=== PATIENT | female | born 1965 | race Caucasian/White ===

== ENCOUNTER 2017-02-05 14:48 | Emergency (ER) | payer SELFPAY ==
[~2017-02-05] VITALS: Ht 162.6 cm; Wt 50.0 kg
[~2017-02-05 14:48] MED LIST: CYCL1PAK PO; KETO10 PO; LORA-392 PO; OMEP20TA39 PO; OXYC1SOL5 PO; PROM25TA5 PO
[2017-02-05 14:49] VITALS: BP 189/127; PULSE 137; RESP 20; TEMP 98.1; O2SAT 99
[2017-02-05] MEDS ORDERED: ZOFR4TAB3 SL (16:56)
[2017-02-05] MEDS ORDERED: LORazepam 2 MG/ML VIAL IM ONE (17:30)
[2017-02-05] MEDS ORDERED: KETOROLAC TROMETHAMINE 60 MG/2 ML (IM) VIAL IM ONE (17:30)
--- NOTE | 2017-02-05 18:11 | PD ---
HPI . Headache Chief Complaint: Headache Time Seen by Provider: 17:10 Travel History International Travel<30 days: No Contact w/Intl Traveler<30days: No Traveled to known affect area: No History of Present Illness HPI Patient presents with chief complaint of headache. Onset was last night. The pain is getting progressively worse. It is constant. She describes it as stabbing and sharp and rates it 10/10. The pain is associated with nausea and vomiting. She believes that the pain originates in her neck and radiates to her head. She states that she has known cervical disc disease. Unfortunately, this patient lists multiple drug allergies. Most of the medications just make her nauseous but she is not willing to try them. PFSH Past Medical History Arthritis: No Asthma: No Autoimmune Disease: No Blood Disorders: No Anxiety: Yes Depression: Yes Heart Rhythm Problems: No Cancer: No Cardiovascular Problems: No High Cholesterol: No Chemotherapy: No Chest Pain: No Congestive Heart Failure: No COPD: No Cerebrovascular Accident: No Diabetes: No Diminished Hearing: No Diverticulitis: Yes Endocrine: No Gastrointestinal Disorders: Yes GERD: No Glaucoma: No Genitourinary: No Headaches: Yes Hepatitis: No Hiatal Hernia: No Hypertension: No Immune Disorder: No Inguinal Hernia: Yes Kidney Stones: No Musculoskeletal: Yes Neurologic: Yes Psychiatric: Yes Reproductive: No Respiratory: No Migraines: Yes Myocardial Infarction: No Radiation Therapy: No Renal Failure: No Seizures: Yes Sickle Cell Disease: No Sleep Apnea: No Thyroid Disease: No Ulcer: No Influenza Vaccination: No ?: Not Past Surgical History Abdominal Surgery: Yes (left inguinal hernia repair) AICD: No Appendectomy: No Cardiac Surgery: No Cholecystectomy: No Ear Surgery: No Endocrine Surgery: No Eye Surgery: No Genitourinary Surgery: No Gynecologic Surgery: Yes (1996 R OOPHERECTOMY,1999 PARTIAL REMOVAL OF OVARY, 2003 TOTAL HYSTERECTOMY) Hysterectomy: Yes Oral Surgery: No Pacemaker: No Thoracic Surgery: No Other Surgery: Yes Social History Alcohol Use: No Tobacco Use: Yes (CIGARETTES 1PPD) Substance Use: No Allergies-Medications (Allergen,Severity, Reaction): Coded Allergies: Sulfa (Sulfonamide Antibiotics) (Unverified Allergy, Severe, 02/05/17) butorphanol (Unverified Allergy, Severe, 02/05/17) prochlorperazine (Unverified Allergy, Severe, 02/05/17) trimethobenzamide (Unverified Allergy, Severe, 02/05/17) carbamazepine (Unverified Allergy, Intermediate, Hallucinations, 02/05/17) methadone (Unverified Adverse Reaction, Intermediate, Marked nausea requiring Zofran concomitantly, 02/05/17) ciprofloxacin (Unverified Adverse Reaction, Mild, Nausea/Vomiting, 02/05/17 ) Uncoded Allergies: Epidural Dye (Adverse Reaction, Severe, Triggered her migraine but with sparkley lights seen which , 02/12/11) she has never had before Reported Meds & Prescriptions Reported Meds & Active Scripts Active Prednisone (21) 10 mg tab Dose Pack (Prednisone) 10 Mg Pack 10 Mg PO DIRECTED Flexeril (Cyclobenzaprine HCl) 10 Mg Tab 10 Mg PO TID Reported Zofran Odt (Ondansetron Odt) 4 Mg Tab 4 Mg SL Q6HR PRN Review of Systems Except as stated in HPI: all other systems reviewed are Neg General / Constitutional: No: Fever, Chills Eyes: No: Diploplia HENT: Positive: Headaches, Neck Pain Gastrointestinal: Positive: Nausea, Vomiting Physical Exam Narrative GENERAL: Awake and alert. She is sitting crosslegged on the bed rocking back and forth. SKIN: Warm and dry. HEAD: Normocephalic/atraumatic. Occipital scalp tenderness. EYES: Pupils are equal. Extraocular movements are intact. NECK: Normal range of motion. Diffusely tender but supple. CARDIOVASCULAR: Regular rate and rhythm. RESPIRATORY: Nonlabored respirations. MUSCULOSKELETAL: Atraumatic. NEUROLOGICAL: Nonfocal. A and O 3. Cranial nerves are intact. She is moving all 4 extremities equally. PSYCHIATRIC: Appropriate mood and affect. Data Data Last Documented VS Vital Signs Date Time Temp Pulse Resp B/P (MAP) Pulse Ox O2 Delivery O2 Flow Rate FiO2 02/05/17 18:53 105 18 135/85 (102) 97 Room Air 02/05/17 14:49 98.1 Orders Orders Ketorolac Inj (Toradol Inj) (02/05/17 17:30) Lorazepam Inj (Ativan Inj) (02/05/17 17:30) Ondansetron Odt (Zofran Odt) (02/05/17 18:15) Dexamethasone Inj (Decadron Inj) (02/05/17 18:15) Basic Metabolic Panel (Bmp) (02/05/17 18:58) Complete Blood Count With Diff (02/05/17 18:58) Drug Screen, Random Urine (02/05/17 18:58) ^ Saline Lock (02/05/17 18:58) Ct Brain W/O Iv Contrast(Rout) (02/05/17 18:58) Ct Cerv Spine W/O Contrast (02/05/17 18:58) Labs Laboratory Tests Test 02/05/17 19:27 White Blood Count 10.1 TH/MM3 Red Blood Count 5.01 MIL/MM3 Hemoglobin 14.8 GM/DL Hematocrit 44.1 % Mean Corpuscular Volume 88.1 FL Mean Corpuscular Hemoglobin 29.6 PG Mean Corpuscular Hemoglobin Concent 33.6 % Red Cell Distribution Width 13.5 % Platelet Count 241 TH/MM3 Mean Platelet Volume 7.3 FL Neutrophils (%) (Auto) 68.4 % Lymphocytes (%) (Auto) 25.2 % Monocytes (%) (Auto) 5.5 % Eosinophils (%) (Auto) 0.2 % Basophils (%) (Auto) 0.7 % Neutrophils # (Auto) 6.9 TH/MM3 Lymphocytes # (Auto) 2.5 TH/MM3 Monocytes # (Auto) 0.6 TH/MM3 Eosinophils # (Auto) 0.0 TH/MM3 Basophils # (Auto) 0.1 TH/MM3 CBC Comment DIFF FINAL Differential Comment Blood Urea Nitrogen 10 MG/DL Creatinine 0.64 MG/DL Random Glucose 95 MG/DL Calcium Level 8.9 MG/DL Sodium Level 139 MEQ/L Potassium Level 3.8 MEQ/L Chloride Level 106 MEQ/L Carbon Dioxide Level 25.9 MEQ/L Anion Gap 7 MEQ/L Estimat Glomerular Filtration Rate 99 ML/MIN [facility] Medical Decision Making Medical Screen Exam Complete: Yes Emergency Medical Condition: Yes Differential Diagnosis Differential diagnosis of headache includes but is not limited to migraine, muscle contraction headache, brain tumor, brain bleed Narrative Course Patient presents complaining with head and neck pain. Because of her drug allergies, I have ordered IM Toradol and IM Ativan. She refused the Toradol stating that it upsets her stomach. I have discussed her multiple allergies and the difficulty treating her secondary to these allergies. I have told her that I can offer her a Decadron shot. She has accepted that. She would also like something for nausea and I have ordered Zofran. The nurse reports the patient is finally resting. I will discharge her with a prescription for steroids and muscle relaxant. The pain is likely coming from her neck. When I went in to discharge the patient, she told me that she felt no better. The nurse had just awakened her from sleep to check on her. Last Impressions Head CT 02/05/171857 Signed Impressions: Service Date/Time: Sunday, February 05, 2017 19:12 - CONCLUSION: Normal examination for a patient of this age. No significant change has occurred. Lucien Araya MD Cervical Spine CT 02/05/171857 Signed Impressions: Service Date/Time: Sunday, February 05, 2017 19:12 - CONCLUSION: Normal examination for a patient of this age. Lucien Araya MD CBC & BMP Diagram 02/05/17 19:27 Calcium Level 8.9 This patient's laboratory and radiographic evaluation is normal. The history, exam, diagnostic testing, and current condition do not suggest any significant pathology to warrant further testing, continued ED treatment, admission, or surgical evaluation at this point. No EMC was found. The patient 's condition is stable and appropriate for discharge. Diagnosis Primary Impression: Severe headache Additional Impression: Neck pain Patient Instructions: Acute Headache (DC), Acute Neck Pain (ED), General Instructions Med/Other Pt SpecificInfo: Prescription(s) given Scripts Prednisone (21) 10 mg tab Dose Pack (Prednisone (21) 10 mg tab Dose Pack) 10 Mg Pack 10 MG PO DIRECTED for Inflammation, #1 DSPK 0 Refills Prov: Alondra Ramos MD 02/05/17 Cyclobenzaprine (Flexeril) 10 Mg Tab 10 MG PO TID for Muscle Spasm, #15 TAB 0 Refills Prov: Alondra Ramos MD 02/05/17 Disposition: 01 DISCHARGE HOME Condition: Stable Alondra Ramos MD Feb 05, 2017 18:11
[2017-02-05] MEDS ORDERED: ONDANSETRON ODT 4 MG TAB PO ONE (18:15)
[2017-02-05] MEDS ORDERED: DEXAMETHASONE SOD PHOS 20 MG/5 ML VIAL IM ONE (18:15)
[2017-02-05 18:53] VITALS: BP 135/85; PULSE 105; RESP 18; O2SAT 97
[2017-02-05] MEDS ORDERED: PRED10PA PO (18:56)
[2017-02-05] MEDS ORDERED: CYCL10TA PO (18:56)
--- NOTE | 2017-02-05 19:32 | RADRPT ---
EXAM DATE/TIME: 02/05/2017 19:12 [facility] COMPARISON: CT BRAIN W/O CONTRAST, December 29, 2014, 17:47. INDICATIONS : Headache with vomiting. RADIATION DOSE: 30.38 CTDIvol (mGy) MEDICAL HISTORY : Seizures. SURGICAL HISTORY : Hysterectomy. Inguinal hernia repair. ENCOUNTER: Initial ACUITY: 1 day PAIN SCALE: 8/10 LOCATION: cranial TECHNIQUE: Multiple contiguous axial images were obtained of the head. Using automated exposure control and adj ustment of the mA and/or kV according to patient size, radiation dose was kept as low as reasonably a chievable to obtain optimal diagnostic quality images. DICOM format image data is available electro nically for review and comparison. FINDINGS: CEREBRUM: The ventricles are normal for age. No evidence of midline shift, mass lesion, hemorrhage or acute in farction. No extra-axial fluid collections are seen. POSTERIOR FOSSA: The cerebellum and brainstem are intact. The 4th ventricle is midline. The cerebellopontine angle i s unremarkable. EXTRACRANIAL: The visualized portion of the orbits is intact. SKULL: The calvaria is intact. No evidence of skull fracture. CONCLUSION: Normal examination for a patient of this age. No significant change has occurred. Lucien Araya MD on February 05, 2017 at 19:29 Board Certified Radiologist. This report was verified electronically.
--- NOTE | 2017-02-05 19:34 | RADRPT ---
EXAM DATE/TIME: 02/05/2017 19:12 [facility] COMPARISON: No previous studies available for comparison. INDICATIONS : Headache with vomiting. RADIATION DOSE: 14.19 CTDIvol (mGy) MEDICAL HISTORY : Seizures. SURGICAL HISTORY : Hysterectomy. Inguinal hernia repair. ENCOUNTER: Initial ACUITY: 1 day PAIN SCALE: 0/10 LOCATION: neck TECHNIQUE: Volumetric scanning of the cervical spine was performed. Multiplanar reconstructions in the sagittal, coronal and oblique axial planes were performed. Using automated exposure control and adjustment o f the mA and/or kV according to patient size, radiation dose was kept as low as reasonably achievable to obtain optimal diagnostic quality images. DICOM format image data is available electronically f or review and comparison. FINDINGS: VERTEBRAE: Normal vertebral body height. ALIGNMENT: No evidence of subluxation. C2-C3: The bony spinal canal is normal in size. No evidence of disc bulge or herniation. The neural forami na are bilaterally patent. C3-C4: The bony spinal canal is normal in size. No evidence of disc bulge or herniation. The neural forami na are bilaterally patent. C4-C5: The bony spinal canal is normal in size. No evidence of disc bulge or herniation. The neural forami na are bilaterally patent. C5-C6: The bony spinal canal is normal in size. No evidence of disc bulge or herniation. The neural forami na are bilaterally patent. C6-C7: The bony spinal canal is normal in size. No evidence of disc bulge or herniation. The neural forami na are bilaterally patent. C7-T1: The bony spinal canal is normal in size. No evidence of disc bulge or herniation. The neural forami na are bilaterally patent. CONCLUSION: Normal examination for a patient of this age. Lucien Araya MD on February 05, 2017 at 19:30 Board Certified Radiologist. This report was verified electronically.
[2017-02-05 19:37] LABS: AUTOMATED NEUTROPHIL # 6.9 TH/MM3 (1.8-7.7); BASOPHIL # 0.1 TH/MM3 (0-0.2); BASOPHIL % 0.7 % (0.0-2.0); EOSINOPHIL % 0.2 % (0.0-4.0); HEMATOCRIT 44.1 % (35.0-46.0); HEMO FLAGS DIFF FINAL; LYMPH % 25.2 % (9.0-44.0); LYMPHOCYTE # 2.5 TH/MM3 (1.0-4.8); MEAN CELL VOLUME 88.1 FL (80.0-100.0); MEAN CORPUSCULAR HEMOGLOBIN 29.6 PG (27.0-34.0); MEAN CORPUSCULAR HGB CONC 33.6 % (32.0-36.0); MONO % 5.5 % (0.0-8.0); NEUT % 68.4 % (16.0-70.0); PLATELET COUNT 241 TH/MM3 (150-450); RED BLOOD COUNT 5.01 MIL/MM3 (4.00-5.30); RED CELL DISTRIBUTION WIDTH 13.5 % (11.6-17.2); WHITE BLOOD COUNT 10.1 TH/MM3 (4.0-11.0)
[2017-02-05 19:59] LABS: BICARBONATE 25.9 MEQ/L (21.0-32.0)
[2017-02-05 20:01] LABS: POTASSIUM 3.8 MEQ/L (3.5-5.1)
== END 2017-02-05 20:35 | disposition home or self-care (01) ==
LOC: NEPD 14:48
DX: R51 Headache (principal); M54.2 Cervicalgia; R11.2 Nausea with vomiting, unspecified; F41.9 Anxiety disorder, unspecified; F32.9 Major depressive disorder, single episode, unspecified; R56.9 Unspecified convulsions
CPT/HCPCS: 70450; 72125; 80048; 80307; 85025; 96372; 99285; J1100; J2060